=== PATIENT | female | born 1965 | race Caucasian/White ===

== ENCOUNTER → 2016-09-30 | Day surgery (SDC) | payer OTHER ==
[~2016-09-30] MED LIST: ALDACTONE; CYMBALTA PO; DIFLUCAN50 MG PO; DULOXETINE HCL60 MG PO; GABAPENTIN300 MG PO; HYDROCODON-ACE1 EAC1 PO; HYDROCODONE; LEXAPRO PO; LEXAPRO20 MG PO; MOBIC PO; NAPROXEN PO; NEURONTIN600 MG PO; OMEPRAZOLE20 M2 PO; PRAVASTATIN SOD20 MG PO; WELLBUTRIN PO; ZANAFLEX4 M1 PO; ZEGERID 40 MG C1 CAP PO; ZEGERID40 MG/PKT PO
--- NOTE | ~2016-09-30 | OR ---
Unit #: [id number] #: [id number] Patient: REMI CAMERON [id number] [address] [place], [place] [address] [id number] MR#: [id number] NAME: REMI CAMERON. ROOM: Date of Procedure: 09/30/2016 Admission Date: 09/30/2016 Surgeon: Deuce Kruse M.D. : 1965 Attending Physician: Duece Kruse M.D. Primary Care Physician: Vladimir Tse M.D. OPERATIVE REPORT PROCEDURE PERFORMED Colonoscopy with snare polypectomy. INDICATIONS FOR PROCEDURE A 51-year-old female with history of polyps in the past, undergoing colonoscopy. Family history of polyps also. MEDICATIONS Monitored anesthesia. POSTOPERATIVE FINDINGS 1. Two polyps, one in descending colon and one in rectum, both about 5 to 6 mm in size, snared and sent for histopathology. 2. Small hemorrhoids. 3. Good prep. PLAN If adenomatous, repeat colonoscopy in 5 years. DESCRIPTION OF PROCEDURE The patient was explained of the procedure, risks, and benefits along with the risks and benefits of anesthesia. She was brought to the endoscopy room. Propofol anesthesia was given. Rectal exam was done, which was normal. Colonoscope was lubricated, passed up the rectum, advanced under direct vision all the way to the cecum. Cecum was identified by ileocecal valve and appendiceal orifice. At this point, I started to pull the scope out. Polyps have been described above. I retroflexed in the rectum, small hemorrhoids were seen. The scope was gently pulled out. She tolerated it well. Dictated by... Nii Bullard/sheryl TD: 09/30/2016 23:01 JOB #: [id number] Unit #: [id number] #: [id number] Patient: REMI CAMERON OPERATIVE REPORT Page 1 of 1 X Deuce Kruse MD PROCEDURE OPERATIVE NOTE
== END | disposition home or self-care (01) ==
LOC: COPS 07:54
DX: D12.4 Benign neoplasm of descending colon (principal); K62.1 Rectal polyp; K64.9 Unspecified hemorrhoids; Z86.010 Personal history of colon polyps; Z83.71 Family history of colonic polyps; K21.9 Gastro-esophageal reflux disease without esophagitis; E66.01 Morbid (severe) obesity due to excess calories
CPT/HCPCS: 88305